=== PATIENT | male | born 1985 | race Two or more races ===

== ENCOUNTER 2019-02-27 14:53 | Emergency (ER) | payer BC ==
--- NOTE | 2019-02-27 15:15 | EDM.PDOC ---
ED HPI GENERAL MEDICAL PROBLEM - General Chief Complaint: Lower Extremity Injury/Pain Stated Complaint: fell Time Seen by Provider: 02/27/19 15:12 Source of Information: Reports: Patient, Family History Limitations: Reports: No Limitations - History of Present Illness INITIAL COMMENTS - FREE TEXT/NARRATIVE: HISTORY AND PHYSICAL: History of present illness: Patient is a 33-year-old male presents to the ED with complaint of right ankle injury. Patient is non-Qatari speaking, friend is interpreting. Patient states he fell on the ice about 20 minutes prior to arrival to the ED. He has not been able to bear weight on the right leg. He reports shooting pain up his leg with flexion/extension. Denies proximal knee or hip pain and denies head or other injury. Review of systems: As per history of present illness and below otherwise all systems reviewed and negative. Past medical history: As per history of present illness and as reviewed below otherwise noncontributory. Surgical history: As per history of present illness and as reviewed below otherwise noncontributory. Social history: No reported history of drug or alcohol abuse. Family history: As per history of present illness and as reviewed below otherwise noncontributory. Physical exam: General: Patient sitting comfortably in no acute distress and nontoxic appearing HEENT: Atraumatic, normocephalic, pupils reactive, negative for conjunctival pallor or scleral icterus, mucous membranes moist, throat clear, neck supple, nontender, trachea midline. No meningeal signs. Lungs: Clear to auscultation, breath sounds equal bilaterally, chest nontender. Heart: S1S2, regular, negative for clicks, rubs, or overt murmur. Abdomen: Soft, nondistended, nontender. Negative for masses or hepatosplenomegaly. Negative for costovertebral tenderness. No rigidity, rebound , guarding. Pelvis: Stable nontender. Genitourinary: Deferred. Rectal: Deferred. Extremities: Swelling the medial and lateral right ankle, skin is intact. Pain to palpation of the medal and lateral malleoli. Negative tib-fib squeeze. negative for cords or calf pain. Neurovascular unremarkable. Neuro: Awake, alert, oriented. Cranial nerves II through XII unremarkable. Cerebellum unremarkable. Motor and sensory unremarkable throughout. Exam nonfocal. Notes: Diagnostics: x-ray right ankle Therapeutics: CAM boot, crutches Prescriptions: Impression: Right ankle injury Definitive disposition and diagnosis as appropriate pending reevaluation and review of above. right knee Pain Score (Numeric/FACES): 8 - Related Data Allergies Allergy/AdvReac Type Severity Reaction Status Date / Time No Known Allergies Allergy Verified 02/27/19 15:11 Home Meds: Home Meds . [No Known Home Meds] 02/27/19 [History] Review of Systems - Review of Systems Review Of Systems: Comprehensive ROS is negative, except as noted in HPI. ED EXAM, GENERAL - Physical Exam Exam: See Below (see dictation) Course - Vital Signs Last Recorded V/S: Last Vital Signs Temp 97 F 02/27/19 15:11 Pulse 94 02/27/19 15:11 Resp 16 02/27/19 15:11 BP 157/104 H 02/27/19 15:11 Pulse Ox 98 02/27/19 15:11 Departure - Departure Time of Disposition: 16:09 Disposition: Home, Self-Care 01 Condition: Good Clinical Impression: Right ankle injury - Discharge Information Referrals: PCP,None [Primary Care Provider] - Forms: ED Department Discharge Additional Instructions: The following information is given to patients seen in the emergency department who are being discharged to home. This information is to outline your options for follow-up care. We provide all patients seen in our emergency department with a follow-up referral. The need for follow-up, as well as the timing and circumstances, are variable depending upon the specifics of your emergency department visit. If you don't have a primary care physician on staff, we will provide you with a referral. We always advise you to contact your personal physician following an emergency department visit to inform them of the circumstance of the visit and for follow-up with them and/or the need for any referrals to a consulting specialist. The emergency department will also refer you to a specialist when appropriate. This referral assures that you have the opportunity for follow-up care with a specialist. All of these measure are taken in an effort to provide you with optimal care, which includes your follow-up. Under all circumstances we always encourage you to contact your private physician who remains a resource for coordinating your care. When calling for follow-up care, please make the office aware that this follow-up is from your recent emergency room visit. If for any reason you are refused follow-up, please contact the [facility] Emergency Department at and asked to speak to the emergency department charge nurse. [facility] [address], [address] [place] [address] 1. Ice, elevate, and motrin or tylenol as needed 2. Follow up with orthopedics, please call the number provided to schedule an appointment 3. Return to ED as needed as discussed Sepsis Event Note - Focused Exam Vital Signs: Vital Signs Temp Pulse Resp BP Pulse Ox 02/27/19 15:11 97 F 94 16 157/104 H 98 Date Exam was Performed: 02/27/19 Time Exam was Performed: 16:08
--- NOTE | 2019-02-27 16:06 | CR ---
HISTORY: Right ankle pain. TECHNIQUE: Three views of the right ankle. COMPARISON: No prior. FINDINGS: Soft tissue swelling overlies the lateral malleolus. On the oblique film, there is a small more chronic appearing ossicle distal to the medial malleolar tip. There is subchondral lucency involving the medial talar dome which may indicate the presence of a chronic osteochondral lesion. There is a spur or osteophyte at the talar dome-neck junction seen on the lateral film. Increased soft tissue density about the ankle joint space may indicate the presence of an ankle joint effusion. No widening of the ankle mortise. No acute fracture. IMPRESSION: 1. Soft tissue swelling. 2. Possible ankle joint effusion. 3. Subchondral lucency involving medial talar dome may indicate the presence of a chronic osteochondral lesion. 4. Ossified body distal to the medial malleolar tip appears corticated and chronic. 5. No acute fracture. Dictated by Georgi Franz MD @ 02/27/2019 4:04:54 PM Dictated by: Georgi Franz MD @ 02/27/2019 16:05:00 (Electronically Signed)
== END 2019-02-27 17:19 | disposition home or self-care (01) ==
LOC: MW.ED 14:53
DX: S99.911A Unspecified injury of right ankle, initial encounter (principal); W00.0XXA Fall on same level due to ice and snow, initial encounter
CPT/HCPCS: 73610-26-RT; 73610-RT; 99283; 99284-25

== ENCOUNTER 2019-07-22 20:38 | Emergency (ER) | payer BC ==
[2019-07-22] MEDS ORDERED: Lisinopril 10 MG Tab PO ONE (20:48)
--- NOTE | 2019-07-22 20:58 | EDM.PDOC ---
ED HPI GENERAL MEDICAL PROBLEM - General Chief Complaint: General Stated Complaint: HEADACHES/POSSIBLE BLOOD PRESSURE PROBLEMS Time Seen by Provider: 07/22/19 20:39 Source of Information: Reports: Patient History Limitations: Reports: No Limitations - History of Present Illness INITIAL COMMENTS - FREE TEXT/NARRATIVE: HISTORY AND PHYSICAL: History of present illness: Patient is a 34-year-old male who presents to the emergency room requesting a medication refill. He has a history of hypertension and typically takes lisinopril 10 mg once daily. He recently started following with Dr. Rico at [facility] and states he did just have a full work-up which included EKG, lab work and prescriptions. Last month he ran out of his high blood pressure medication but did not feel any symptoms. Today he started to have a mild headache and was concerned his blood pressure may be high since he has not had this medication refilled. He did attempt to call Dr. Rico's office but did not get anyone to return his phone call. He also attempted to call the pharmacy who said he needed a new prescription in order to get this medication. Patient denies any fever, chills, change in vision, syncope or near syncope. Denies any chest pain, back pain, shortness of breath or cough. Denies any abdominal pain, nausea, vomiting, diarrhea, constipation or dysuria. Has not noted any blood in urine or stool. Patient has been eating and drinking appropriately. Review of systems: As per history of present illness and below otherwise all systems reviewed and negative. Past medical history: As per history of present illness and as reviewed below otherwise noncontributory. Surgical history: As per history of present illness and as reviewed below otherwise noncontributory. Social history: See social history for further information Family history: As per history of present illness and as reviewed below otherwise noncontributory. Physical exam: General: Well-developed and well-nourished 34-year-old male. Alert and oriented. Nontoxic-appearing and in no acute distress. HEENT: Atraumatic, normocephalic, pupils equal and reactive bilaterally, negative for conjunctival pallor or scleral icterus, mucous membranes moist, trachea midline. No drooling or trismus noted. No meningeal signs. No hot potato voice noted. Lungs: Clear to auscultation, breath sounds equal bilaterally, chest nontender. Heart: S1S2, regular rate and rhythm without overt murmur Abdomen: Soft, nondistended, nontender. Negative for masses or hepatosplenomegaly. Negative for costovertebral tenderness. Skin: Intact, warm, dry. No lesions or rashes noted. Extremities: Atraumatic, moves all extremities per self without difficulty or deficits, negative for cords or calf pain. Neurovascular unremarkable. Neuro: Awake, alert, oriented. Cranial nerves II through XII unremarkable. Cerebellum unremarkable. Motor and sensory unremarkable throughout. Exam nonfocal. Notes: Patient declines wanting any diagnositics; stating he is being worked up and followed by Dr Rico. Reviewed case with Dr Alejandro. Patient is asymptomatic. Medication education and follow-up reviewed. Supportive care measures were reviewed and discussed. Voices understanding and is agreeable to plan of care. Denies any further questions or concerns at this time. Diagnostics: EKG Therapeutics: Lisinopril Prescription: Lisinopril (#30) Impression: Encounter for medication refill Plan: 1. Take your medication as directed. Continue to keep an eye on your blood pressure. 2. Tylenol and/or Ibuprofen as needed for pain. 3. Please follow up with Dr Rico for further management and re-evaluation. 4. Return to the ED as needed and as discussed. Definitive disposition and diagnosis as appropriate pending reevaluation and review of above. headache Pain Score (Numeric/FACES): 7 - Related Data Allergies Allergy/AdvReac Type Severity Reaction Status Date / Time No Known Allergies Allergy Verified 07/22/19 20:41 Home Meds: Home Meds lisinopriL [Lisinopril] 10 mg PO DAILY #30 tablet 07/22/19 [Rx] Past Medical History - Infectious Disease History Infectious Disease History: Reports: None - Past Surgical History HEENT Surgical History: Reports: Naso-Sinus Surgery Social & Family History - Family History Family Medical History: Noncontributory - Caffeine Use Caffeine Use: Reports: None ED ROS GENERAL - Review of Systems Review Of Systems: Comprehensive ROS is negative, except as noted in HPI. ED EXAM, GENERAL - Physical Exam Exam: See Below (See dictation) Course - Vital Signs Last Recorded V/S: Last Vital Signs Temp 98.0 F 07/22/19 21:01 Pulse 107 H 07/22/19 21:27 Resp 18 07/22/19 21:27 BP 165/117 H 07/22/19 21:27 Pulse Ox 93 L 07/22/19 21:27 - Orders/Labs/Meds Orders: Active Orders 24 hr Category Date Time Status EKG Documentation Completion [RC] STAT Care 07/22/19 20:51 Active Meds: Medications Discontinued Medications Generic Name Dose Route Start Last Admin Trade Name Ronnie PRN Reason Stop Dose Admin Lisinopril 10 mg 07/22/19 20:48 07/22/19 20:57 Prinivil PO 07/22/19 20:49 10 mg ONETIME ONE Administration Departure - Departure Time of Disposition: 21:36 Disposition: Home, Self-Care 01 Clinical Impression: Encounter for medication refill - Discharge Information Prescriptions: lisinopriL [Lisinopril] 10 mg PO DAILY #30 tablet Instructions: Hypertension, Adult, Jlzj-ys-Tent Forms: ED Department Discharge Additional Instructions: The following information is given to patients seen in the emergency department who are being discharged to home. This information is to outline your options for follow-up care. We provide all patients seen in our emergency department with a follow-up referral. The need for follow-up, as well as the timing and circumstances, are variable depending upon the specifics of your emergency department visit. If you don't have a primary care physician on staff, we will provide you with a referral. We always advise you to contact your personal physician following an emergency department visit to inform them of the circumstance of the visit and for follow-up with them and/or the need for any referrals to a consulting specialist. The emergency department will also refer you to a specialist when appropriate. This referral assures that you have the opportunity for follow-up care with a specialist. All of these measure are taken in an effort to provide you with optimal care, which includes your follow-up. Under all circumstances we always encourage you to contact your private physician who remains a resource for coordinating your care. When calling for follow-up care, please make the office aware that this follow-up is from your recent emergency room visit. If for any reason you are refused follow-up, please contact the [facility] Emergency Department at and asked to speak to the emergency department charge nurse. [facility] [address] [place], [place] [id number] [facility] [address] [place] [id number] 1. Take your medication as directed. Continue to keep an eye on your blood pressure. 2. Tylenol and/or Ibuprofen as needed for pain. 3. Please follow up with Dr Rico for further management and re-evaluation. 4. Return to the ED as needed and as discussed. Sepsis Event Note - Evaluation Sepsis Screening Result: No Definite Risk - Focused Exam Vital Signs: Vital Signs Temp Temp Pulse Resp BP BP Pulse Ox 07/22/19 21:27 107 H 18 165/117 H 93 L 07/22/19 21:01 98.0 F 111 H 20 168/114 H 93 L 07/22/19 20:57 169/135 H 07/22/19 20:43 97.6 F 94 18 178/134 H 118 H Date Exam was Performed: 07/22/19 Time Exam was Performed: 21:35 - My Orders Last 24 Hours: My Active Orders 07/22/19 20:51 EKG Documentation Completion [RC] STAT - Assessment/Plan Last 24 Hours: My Active Orders 07/22/19 20:51 EKG Documentation Completion [RC] STAT
== END 2019-07-22 21:49 | disposition home or self-care (01) ==
LOC: MW.ED 20:38
DX: I10 Essential (primary) hypertension (principal); Z76.0 Encounter for issue of repeat prescription
CPT/HCPCS: 93005; 99283; A9270; 99281

== ENCOUNTER 2020-07-28 08:25 | Day surgery (SDC) | payer BC ==
[~2020-07-28 08:25] MED LIST: Lactated Ringers 1,000 ML IV SCH; Sodium Chloride 0.9% 10 ML SDV IV PRN; Sodium Chloride 0.9% 10 ML Syringe FLUSH PRN; Sodium Chloride 0.9% 2.5 ML Syringe FLUSH PRN
--- NOTE | 2020-07-28 09:01 | PCM.PREANE ---
Preanesthetic Assessment - Anesthesia/Transfusion/Family Hx Anesthesia History: Prior Anesthesia Without Reaction Family History of Anesthesia Reaction: No Transfusion History: No Prior Transfusion(s) - Review of Systems General: No Symptoms Pulmonary: No Symptoms Cardiovascular: No Symptoms Gastrointestinal: No Symptoms Neurological: No Symptoms Other: Reports: None - Physical Assessment NPO Status Date: 07/28/20 NPO Status Time: 00:01 Vital Signs: Last Vital Signs Temp 97.3 F 07/28/20 08:49 Pulse 78 07/28/20 08:49 Resp 15 07/28/20 08:49 BP 140/103 H 07/28/20 08:49 Pulse Ox 95 07/28/20 08:49 Height: 6 ft 1 in Weight: 243 lb ASA Class: 2 Mental Status: Alert & Oriented x3 Airway Class: Mallampati = 3 Dentition: Reports: Normal Dentition ROM/Head Extension: Full Lungs: Clear to Auscultation, Normal Respiratory Effort Cardiovascular: Regular Rate, Regular Rhythm - Allergies Allergies/Adverse Reactions: Allergies Allergy/AdvReac Type Severity Reaction Status Date / Time No Known Allergies Allergy Verified 07/22/20 13:58 - Anesthesia Plan Pre-Op Medication Ordered: None - Acknowledgements Anesthesia Type Planned: General Anesthesia Pt an Appropriate Candidate for the Planned Anesthesia: Yes Alternatives and Risks of Anesthesia Discussed w Pt/Guardian: Yes Pt/Guardian Understands and Agrees with Anesthesia Plan: Yes Additional Comments: npo after mn htn no cv problems obesity bmi 34 tob none etoh rare par no questions PreAnesthesia Questionnaire HEENT History: Reports: Other (See Below) Other HEENT History: wears glasses Cardiovascular History: Reports: Hypertension Respiratory History: Reports: None Gastrointestinal History: Reports: GERD Genitourinary History: Reports: None Musculoskeletal History: Reports: Fracture Other Musculoskeletal History: hx of fx right ankle Neurological History: Reports: None Psychiatric History: Reports: None Endocrine/Metabolic History: Reports: Obesity/BMI 30+ Hematologic History: Reports: None Immunologic History: Reports: None Oncologic (Cancer) History: Reports: None Dermatologic History: Reports: None - Infectious Disease History Infectious Disease History: Reports: None - Past Surgical History Head Surgeries/Procedures: Reports: None HEENT Surgical History: Reports: Naso-Sinus Surgery, Oral Surgery Other HEENT Surgeries/Procedures: states sinus surgery and "plastic surgery to repair nose", wisdom teeth removed Cardiovascular Surgical History: Reports: None Respiratory Surgical History: Reports: None GI Surgical History: Reports: EGD Male Surgical History: Reports: None Endocrine Surgical History: Reports: None Neurological Surgical History: Reports: None Musculoskeletal Surgical History: Reports: None Oncologic Surgical History: Reports: None - SUBSTANCE USE Tobacco Use Status *Q: Former Tobacco User Tobacco Use Within Last Twelve Months: Cigarettes Recreational Drug Use History: No - HOME MEDS Home Medications: Home Meds lisinopriL [Lisinopril] 20 mg PO DAILY 07/22/20 [History] - CURRENT (IN HOUSE) MEDS Current Meds: Current Medications Lactated Ringer's (Ringers, Lactated) 1,000 mls @ 125 mls/hr IV ASDIRECTED WILL Lactated Ringer's (Ringers, Lactated) 1,000 mls @ 125 mls/hr IV ASDIRECTED WILL Sodium Chloride (Sodium Chloride 0.9% 10 Ml Syringe) 10 ml FLUSH ASDIRECTED PRN PRN Reason: Keep Vein Open Sodium Chloride (Sodium Chloride 0.9% 2.5 Ml Syringe) 2.5 ml FLUSH ASDIRECTED PRN PRN Reason: Keep Vein Open Sodium Chloride (Sodium Chloride 0.9% 10 Ml Sdv) 10 ml IV ASDIRECTED PRN PRN Reason: IV Use
[2020-07-28] MEDS ORDERED: Propofol 200 MG/20 ML SDV ONE (09:26)
--- NOTE | 2020-07-28 10:05 | PCM.OPNOTE ---
- General Post-Op/Procedure Note Date of Surgery/Procedure: 07/28/20 Operative Procedure(s): Diagnostic EGD Findings: Very small hiatal hernia Pre Op Diagnosis: Reflux Post-Op Diagnosis: Hiatal hernia with gerd Anesthesia Technique: WILFRIDO Primary Surgeon: Nita Mendieta Condition: Good
--- NOTE | 2020-07-28 10:20 | PCM.POSTAN ---
POST ANESTHESIA ASSESSMENT - MENTAL STATUS Mental Status: Alert (no anesthetic problems), Oriented - VITAL SIGNS Vital Signs: Last Vital Signs Temp 97.3 F 07/28/20 08:49 Pulse 95 07/28/20 10:13 Resp 20 07/28/20 10:13 BP 133/82 07/28/20 10:13 Pulse Ox 95 07/28/20 10:13 - RESPIRATORY Respiratory Status: Respiratory Rate WNL, Airway Patent, O2 Saturation Stable - CARDIOVASCULAR CV Status: Pulse Rate WNL, Blood Pressure Stable - GASTROINTESTINAL GI Status: No Symptoms - POST OP HYDRATION Hydration Status: Adequate & Stable
--- NOTE | 2020-07-28 11:08 | PCM48HPAN ---
Post Anesthesia Note - EVALUATION WITHIN 48HRS OF ANESTHETIC Vital Signs in Normal Range: Yes Patient Participated in Evaluation: Yes Respiratory Function Stable: Yes Airway Patent: Yes Cardiovascular Function Stable: Yes Hydration Status Stable: Yes Pain Control Satisfactory: Yes Nausea and Vomiting Control Satisfactory: Yes Mental Status Recovered: Yes Vital Signs: Last Vital Signs Temp 97.3 F 07/28/20 08:49 Pulse 95 07/28/20 10:13 Resp 20 07/28/20 10:13 BP 133/82 07/28/20 10:13 Pulse Ox 95 07/28/20 10:13
--- NOTE | 2020-07-30 14:35 | OR ---
SURGEON: NITA MENDIETA MD DATE OF PROCEDURE: 07/28/2020 PREOPERATIVE DIAGNOSIS: Reflux. POSTOPERATIVE DIAGNOSIS: Hiatal hernia. PROCEDURE PERFORMED: Diagnostic esophagogastroduodenoscopy with biopsy. PRIMARY SURGEON: Nita Mendieta MD. ANESTHESIA: MAC. INSTRUMENT USED: Olympus endoscope. EXTENT OF THE EXAM: To the second portion of duodenum. PREPARATION: Good. LIMITATIONS: None. INDICATIONS FOR EXAMINATION: The patient is a 35-year-old male who presents to my office with increasing reflux symptoms. He had been scoped in the past while living in [place]. He was treated with medication but cannot remember what kind of medication this was. A decision was made to proceed with a diagnostic EGD. I explained the procedure, expected perioperative course, and the risks. He verbalized understanding and wishes to proceed. PROCEDURE IN DETAIL: The patient was brought to the endoscopy suite and placed in a beach chair position. A time-out was completed verifying the patient's name, age, date of , allergies, and procedure to be performed. Monitored anesthesia care was induced and continuous oxygen was provided via nasal cannula throughout the procedure. A bite block was placed in the patient's mouth. After adequate sedation was achieved, a well-lubricated endoscope was placed in the patient's mouth and advanced under direct visualization to the second portion of the duodenum. This appeared normal and a photograph was taken. The scope was then fully withdrawn while examining the color, texture, anatomy, and integrity of mucosa of the upper GI tract. The duodenum appeared normal. The scope was brought into the stomach, and a photograph was taken of the pylorus and GE junction. The patient was noted to have a very small hiatal hernia. Biopsies were taken of the gastric antrum, body, and fundus and sent for histologic review and H. pylori testing. There was no evidence of gross ulceration or inflammation in the stomach. The scope was brought into the distal esophagus. The Z-line appeared grossly normal other than a very small hiatal hernia. A biopsy was taken just above the Z-line and sent to pathology labeled as esophagus. The remainder of the esophagus appeared normal. The scope was removed and the procedure terminated. The patient was woken and taken to PACU in stable condition. ENDOSCOPIC DIAGNOSIS: Hiatal hernia. RECOMMENDATIONS: The patient was placed on a PPI which he should continue to take. I encouraged him to schedule his appointment for an esophagram. Once I have the biopsy results and the esophagram, we will visit about any further steps in treatment. BARBARA / RAFFAELE /[id number]
== END 2020-07-28 10:55 | disposition home or self-care (01) ==
LOC: MW.SDS 08:25
PROVIDERS: ATTEND Surgery
DX: K20.90 Esophagitis, unspecified without bleeding (principal); K22.8 Other specified diseases of esophagus; K31.89 Other diseases of stomach and duodenum; K44.9 Diaphragmatic hernia without obstruction or gangrene; I10 Essential (primary) hypertension; E66.9 Obesity, unspecified; Z68.32 Body mass index [BMI] 32.0-32.9, adult; Z79.899 Other long term (current) drug therapy; Z98.890 Other specified postprocedural states; Z87.891 Personal history of nicotine dependence
CPT/HCPCS: 43239; J2704; J7120; 00731; 88305; 88312

== ENCOUNTER 2021-12-17 10:42 | Emergency (ER) | payer BC, OTHER | END 2021-12-17 13:53 | disposition home or self-care (01) | LOC: MW.ED 10:42 | DX: S93.401A Sprain of unspecified ligament of right ankle, initial encounter (principal); I10 Essential (primary) hypertension; E66.9 Obesity, unspecified; Z68.29 Body mass index [BMI] 29.0-29.9, adult; Z79.899 Other long term (current) drug therapy; X50.1XXA Overexertion from prolonged static or awkward postures, initial encounter | CPT/HCPCS: 73610-26-RT; 73610-RT; 99282; 99283 ==